=== PATIENT | female | born 1985 | race Caucasian/White ===

== ENCOUNTER 2018-05-13 01:02 | Emergency (ER) | payer OTHER ==
[~2018-05-13] VITALS: Ht 162.6 cm; Wt 69.4 kg
[~2018-05-13 01:02] MED LIST: SIMV80TA2 PO
[2018-05-13 01:04] VITALS: TEMP 36.8; Ht 162.6 cm; Wt 69.4 kg
[2018-05-13] MEDS ORDERED: ALUMINUM/MAGNESIUM SUSP 30 ML UDC PO STA (01:26)
[2018-05-13] MEDS ORDERED: LIDOCAINE HCL 2% VISC SOLN 20 ML UDC PO STA (01:26)
[2018-05-13 01:51] LABS: BASO % 0.3 %; BASO ABS # 0.04 K/uL (0-0.2); EOS % 4.8 %; EOS ABS # 0.56 K/uL (0-0.5); HEMATOCRIT 42.7 % (37-47); HEMOGLOBIN 14.2 g/dL (12.0-16.0); IG# 0.03 K/uL (0.00-0.02); MEAN CELL VOLUME 90.9 fL (80-100); MEAN CORPUSCULAR HEMOGLOBIN 30.2 pg (25-34); MEAN CORPUSCULAR HGB CONC 33.3 g/dl (32-36); MEAN PLATELET VOLUME 9.9 fL (7.4-10.4); MONO % 5.4 %; MONO ABS # 0.63 K/uL (0.11-0.59); NEUT % 53.2 %; NEUT ABS # 6.22 K/uL (1.4-6.5); PLATELET COUNT 264 K/uL (130-400); RED CELL DISTRIBUTION WIDTH CV 13.4 % (11.5-14.5); RED CELL DISTRIBUTION WIDTH SD 44.6 fL (36.4-46.3); WHITE BLOOD COUNT 11.68 K/uL (4.8-10.8)
[2018-05-13 02:15] LABS: ALBUMIN 3.6 gm/dl (3.4-5.0); ALKALINE PHOSPHATASE 69 U/L (45-117); ALT/SGPT 20 U/L (12-78); AST/SGOT 13 U/L (15-37); BLOOD UREA NITROGEN 14 mg/dl (7-18); CALCIUM 9.1 mg/dl (8.5-10.1); CARBON DIOXIDE 24 mmol/L (21-32); GLUCOSE 94 mg/dl (70-99); LIPASE 124 U/L (73-393); POTASSIUM 3.9 mmol/L (3.5-5.1); SODIUM 139 mmol/L (136-145); TOTAL PROTEIN 7.2 gm/dl (6.4-8.2)
[2018-05-13] MEDS ORDERED: ATOR-22 PO (02:55)
[2018-05-13] MEDS ORDERED: CETI10TA84 PO (02:55)
[2018-05-13] MEDS ORDERED: MONT1TAB3 PO (02:55)
[2018-05-13] MEDS ORDERED: AZEL30SP NAE (02:56)
[2018-05-13] MEDS ORDERED: FLUT0.15 NAE (02:56)
[2018-05-13] MEDS ORDERED: APRI28 PO (02:56)
[2018-05-13] MEDS ORDERED: VNTHFA/IN INH (02:57)
[2018-05-13] MEDS ORDERED: KETOROLAC TROMETHAMINE 30 MG/ML VIAL IV STA (03:11)
[2018-05-13] MEDS ORDERED: OPTIRAY 320 IV PRN (03:15)
[2018-05-13 04:23] VITALS: BP 111/65; PULSE 55; O2SAT 97
--- NOTE | 2018-05-13 04:34 | EMERGENCY ROOM VISIT NOTE ---
History First contact with patient: 01:12 Chief Complaint: ABDOMINAL PAIN Stated Complaint: SEVERE ABD PAIN,BACK PAIN,NAUSEA Nursing Triage Summary: Pt reports epigastric pain that started around 8pm tonight. Pt reports that she has had this pain before but not as severe. Pt with nausea, denies vomiting. History of Present Illness The patient is a 32 year old female who presents to the Emergency Room with complaints of epigastric pain with nausea for the past few hours. Pain 7 out of 10. Nothing makes it better or worse. Symptoms started after eating hamburger and hot dog tonight. She still has her gallbladder. Patient denies chest pain, dyspnea, vomiting, diarrhea, fever, chills, cough, congestion. Patient has had pains in her epigastric region before But nothing this severe. Review of Systems An 10 system review of systems was completed with positives and pertinent negatives listed in the HPI. Past Medical/Surgical History Medical Problems: (1) Back problem (2) No chronic diseases present Family History Patient reports no known family medical history. Social History Smoking Status: Former Smoker Alcohol Use: none Drug Use: none Marital Status: single Occupation Status: employed Current/Historical Medications Scheduled Atorvastatin (Lipitor), 20 MG PO DAILY Azelastine Hcl-Fluticasone Pro (Dymista), 2 SPRY MILY BID Cetirizine (Zyrtec), 10 MG PO HS Ethinyl Estrad/Desogestrel (Apri), 1 TAB PO DAILY Fluticasone Propionate (Nasal) (Flonase Allergy Relief), 2 SPRAYS MILY DAILY Montelukast Sodium (Singulair), 10 MG PO DAILYBB Scheduled PRN Albuterol Hfa (Ventolin Hfa), 2 PUFFS INH Q6H PRN for SORE THROAT Physical Exam Vital Signs Date Time Temp Pulse Resp B/P (MAP) Pulse Ox O2 Delivery O2 Flow Rate FiO2 05/13/18 04:23 55 16 111/65 97 Room Air 05/13/18 02:36 61 18 115/68 96 Room Air 05/13/18 01:43 Room Air 05/13/18 01:04 36.8 74 18 172/83 96 Room Air Physical Exam VITALS: Vitals are noted on the nurse's note and reviewed by myself. Vital signs stable. GENERAL: Pleasant female who appears in pain, in no acute distress, nondiaphoretic, well-developed well-nourished. SKIN: The skin was without rashes, erythema, edema, or bruising. There is no tenting of the skin. Capillary reflex less than 2 seconds. HEAD: Normocephalic atraumatic. EARS: External auditory canals clear EYES: Pupils equal round and reactive to light and accommodation. Conjunctivae without injection, sclerae without icterus. Extraocular movements intact. NOSE: Patent, turbinates without inflammation or discharge. MOUTH: Mucous membranes moist. Pharynx without erythema or exudate. Uvula midline. Airway patent. Tongue does not deviate. NECK: Supple without nuchal rigidity. No lymphadenopathy. No thyromegaly. Cervical spine is nontender. No JVD. HEART: Regular rate and rhythm without murmurs gallops or rubs. LUNGS: Clear to auscultation bilaterally without wheezes, rales or rhonchi. No retractions or accessory muscle use. ABDOMEN: Positive bowel sounds x 4. Normal tympanic percussion. Soft, tender to palpation epigastric region, without masses or organomegaly. Candelario sign negative. No guarding or rebound tenderness. No CVA tenderness MUSCULOSKELETAL: No muscle atrophy, erythema, or edema noted. NEURO: Patient was alert and oriented to person place and time. Normal sensation to light and sharp touch. No focal neurological deficits. Medical Decision & Procedures Laboratory Results 05/13/18 01:40 Red Blood Count 4.70, Mean Corpuscular Volume 90.9, Mean Corpuscular Hemoglobin 30.2, Mean Corpuscular Hemoglobin Concent 33.3, Mean Platelet Volume 9.9, Neutrophils (%) (Auto) 53.2, Lymphocytes (%) (Auto) 36.0, Monocytes (%) (Auto) 5.4, Eosinophils (%) (Auto) 4.8, Basophils (%) (Auto) 0.3, Neutrophils # (Auto) 6.22, Lymphocytes # (Auto) 4.20, Monocytes # (Auto) 0.63, Eosinophils # (Auto) 0.56, Basophils # (Auto) 0.04 05/13/18 01:40 Test 05/13/18 01:40 05/13/18 02:30 White Blood Count 11.68 K/uL (4.8-10.8) Red Blood Count 4.70 M/uL (4.2-5.4) Hemoglobin 14.2 g/dL (12.0-16.0) Hematocrit 42.7 % (37-47) Mean Corpuscular Volume 90.9 fL (80-100) Mean Corpuscular Hemoglobin 30.2 pg (25-34) Mean Corpuscular Hemoglobin Concent 33.3 g/dl (32-36) Platelet Count 264 K/uL (130-400) Mean Platelet Volume 9.9 fL (7.4-10.4) Neutrophils (%) (Auto) 53.2 % Lymphocytes (%) (Auto) 36.0 % Monocytes (%) (Auto) 5.4 % Eosinophils (%) (Auto) 4.8 % Basophils (%) (Auto) 0.3 % Neutrophils # (Auto) 6.22 K/uL (1.4-6.5) Lymphocytes # (Auto) 4.20 K/uL (1.2-3.4) Monocytes # (Auto) 0.63 K/uL (0.11-0.59) Eosinophils # (Auto) 0.56 K/uL (0-0.5) Basophils # (Auto) 0.04 K/uL (0-0.2) RDW Standard Deviation 44.6 fL (36.4-46.3) RDW Coefficient of Variation 13.4 % (11.5-14.5) Immature Granulocyte % (Auto) 0.3 % Immature Granulocyte # (Auto) 0.03 K/uL (0.00-0.02) Anion Gap 7.0 mmol/L (3-11) Est Creatinine Clear Calc Drug Dose 94.8 ml/min Estimated GFR () 111.5 Estimated GFR (Non- 96.2 BUN/Creatinine Ratio 17.1 (10-20) Calcium Level 9.1 mg/dl (8.5-10.1) Total Bilirubin 0.2 mg/dl (0.2-1) Direct Bilirubin < 0.1 mg/dl (0-0.2) Aspartate Amino Transf (AST/SGOT) 13 U/L (15-37) Alanine Aminotransferase (ALT/SGPT) 20 U/L (12-78) Alkaline Phosphatase 69 U/L (45-117) Troponin I < 0.015 ng/ml (0-0.045) Total Protein 7.2 gm/dl (6.4-8.2) Albumin 3.6 gm/dl (3.4-5.0) Lipase 124 U/L (73-393) Human Chorionic Gonadotropin, Qual NEG (NEG) Urine Color YELLOW Urine Appearance CLEAR (CLEAR) Urine pH 5.0 (4.5-7.5) Urine Specific [place] 1.020 (1.000-1.030) Urine Protein NEG (NEG) Urine Glucose (UA) NEG (NEG) Urine Ketones NEG (NEG) Urine Occult Blood NEG (NEG) Urine Nitrite NEG (NEG) Urine Bilirubin NEG (NEG) Urine Urobilinogen NEG (NEG) Urine Leukocyte Esterase NEG (NEG) Urine WBC (Auto) 1-5 /hpf (0-5) Urine RBC (Auto) 0-4 /hpf (0-4) Urine Hyaline Casts (Auto) 1-5 /lpf (0-5) Urine Epithelial Cells (Auto) 0-5 /lpf (0-5) Urine Bacteria (Auto) NEG (NEG) Medications Administered Medications (Trade) Dose Ordered Sig/Ele Route Start Time Stop Time Status Last Admin Dose Admin Lidocaine HCl (Viscous Lidocaine 2% Soln) 10 ml NOW STAT PO 05/13/18 01:26 05/13/18 01:27 DC 05/13/18 01:45 10 ML Al Hydroxide/Mg Hydroxide (Maalox Susp) 30 ml NOW STAT PO 05/13/18 01:26 05/13/18 01:27 DC 05/13/18 01:45 30 ML Ketorolac Tromethamine (Toradol Inj) 10 mg NOW STAT IV 05/13/18 03:11 05/13/18 03:12 DC 05/13/18 03:29 10 MG ED Course Prior records/ancillary studies reviewed. Triage Nursing notes reviewed. The patient's history was concerning for abdominal pain. Differential diagnosis: Etiologies such as appendicitis, diverticulitis, PUD, biliary pathology, UTI, pancreatitis, obstruction, mesenteric ischemia, aortic pathology, infections, inflammatory bowel disease, renal colic, as well as others were entertained. Physical examination findings: As above. ER treatment provided: GI cocktail, Toradol, IV fluids On reassessment the patient felt better. Diagnostics interpreted by me: ECG: Normal sinus, normal intervals, no acute ST-T wave changes. Impression normal sinus rhythm interpreted by myself I think arrhythmia is unlikely. EKG shows normal sinus rhythm with no interval abnormalities such as QT prolongation or WPW. There are no findings to suggest Brugada syndrome. Cardiac monitoring in the emergency department reveals no tachycardic or bradycardic dysrhythmia. Hypertrophic cardiomyopathy was considered but there are no clear historical elements pointing toward this. EKG is not suggestive. The QRS voltage is not extremely large and there are no suggestive Q waves. The labs revealed mild leukocytosis. Stable H&H. Negative hCG. Normal lipase Imaging studies: CT ABDOMEN & PELVIS With Contrast: Fluid in small bowel loops, nonspecific, can be seen with enteritis in the appropriate clinical setting. No evidence of bowel obstruction. A 4 cm ovoid low density structure in the right adnexa, possible ovarian cyst or fluid in small bowel. Normal caliber appendix (image [id number]). Small nonspecific mesenteric and retroperitoneal lymph nodes. Small fat-containing umbilical hernia. Mild basilar atelectatic changes. Radiologist: Narcisa Tompkins M.D. US GALLBLADDER: Unremarkable study. No gallstones or sonographic evidence of cholecystitis. Radiologist: Narcisa Tompkins M.D. Exam and history seem consistent with epigastric pain most likely gastritis in etiology. Repeat abdominal exam was benign. Patient had no lower abdominal pain. Her symptoms have improved. Normal gallbladder ultrasound. Patient was advised to rest, stay well-hydrated and take medications as directed. Patient was advised to follow-up family care in a few days for possible outpatient HIDA scan or endoscopy or to return to the ER immediately for abdominal pain, fevers , vomiting, worsening signs or symptoms or as needed. Patient did not have acute abdomen on exam. She was well-appearing. By the evaluation outlined above emergent etiologies such as appendicitis, diverticulitis, PUD, biliary pathology, UTI, pancreatitis, obstruction, mesenteric ischemia, aortic pathology, infections, inflammatory bowel disease, renal colic, as well as others were deemed relatively unlikely. The pt informed about the findings as listed above. All questions were answered and pleased with the treatment. Return instructions were outlined and the patient was discharged in stable condition. Outpatient prescription management: Protonix Referral: The patient was referred back to their primary care physician for follow-up in 2 to 3 days for a recheck of the current condition. Case reviewed with my attending The chart was completed utilizing [employer] voice recognition software. Grammatical errors, random word insertions, pronoun errors, and incomplete sentences are an occassional consequence of this system due to software limitations, ambient noise, and hardware issues. Any formal questions or concerns about the content, text, or information contained within the body of this dictation should be directly addressed to the physician residential living assistant for clarification. Medical Decision As above Medication Reconcilliation Current Medication List: was personally reviewed by me Blood Pressure Screening Patient's blood pressure: Normal blood pressure Impression Primary Impression: Epigastric abdominal pain Departure Information Dispostion Home / Self-Care Condition GOOD Referrals No Doctor, Assigned (PCP) Patient Instructions My [facility] Additional Instructions Protonix 40 m tablet daily for next 2 weeks. Take this on an empty stomach. Try Maalox or Zantac for breakthrough symptoms for reflux. Avoid large meals. Avoid acidic foods. Rest and drink plenty of fluids as tolerated. Continue current medications. CT shows possible ovarian cyst. Follow-up with family care for this. Recommend repeat pelvic ultrasound in 6 weeks for resolution. Recommend if symptoms persist to have an outpatient HIDA scan or endoscopy for further evaluation and workup. Avoid strenuous activities and anything that worsens your pain. Resume normal activities once your symptoms resolve. Return to the ER immediately for worsening or persistent chest pain, abdominal pain, black or blood in your stools, vomiting, fevers, chest pains, difficulty breathing, worsening of your condition, or as needed. Follow up with your primary physician in 2-3 days for a recheck of your current condition.
[2018-05-13] MEDS ORDERED: PANT40TA PO (04:35)
[2018-05-13] MEDS ORDERED: PANTOprazole SOD 40 MG TAB PO STA (04:35)
--- NOTE | 2018-05-13 06:32 | DIAGNOSTIC IMAGING REPORT ---
Biliary ultrasound CLINICAL HISTORY: ] Quadrant abdominal pain COMPARISON STUDY: No previous studies for comparison. FINDINGS: The pancreas appears sonographically normal. The liver appears sonographically normal. The gallbladder appears sonographically normal. There is no ductal dilatation. The common bile duct measures 3 mm. There is no right-sided hydronephrosis. IMPRESSION: Normal biliary ultrasound. Electronically signed by: Raul Vidales M.D. 05/13/2018 6:30 AM Dictated Date/Time: 05/13/2018 6:29 AM
--- NOTE | 2018-05-13 07:52 | DIAGNOSTIC IMAGING REPORT ---
CT SCAN OF THE ABDOMEN AND PELVIS WITH IV CONTRAST CLINICAL HISTORY: Upper abdominal pain. COMPARISON STUDY: Abdominal ultrasound dated 05/13/2018. TECHNIQUE: Following the IV administration of 93 cc of Optiray 320, CT scan of the abdomen and pelvis is performed from the lung bases to the proximal femora. Images are reviewed in the axial, sagittal, and coronal planes. IV contrast was administered without complication. A dose lowering technique was utilized adhering to the principles of ALARA. CT DOSE: 314.82 mGy.cm FINDINGS: Lung bases: The heart is normal in size and without pericardial effusion. The lung bases are clear noting dependant atelectasis. Liver: The contrast-enhanced liver is enlarged, measuring 20.3 cm in length. The liver is otherwise normal in contour and attenuation. Mild periportal edema is noted. There is no intrahepatic biliary ductal dilatation. The portal veins are patent. Gallbladder: Unremarkable. Spleen: Normal in size and attenuation. Pancreas: Unremarkable. Adrenal glands: Unremarkable. Kidneys: The contrast enhanced kidneys are normal in size and without hydronephrosis. The kidneys enhance symmetrically. Abdominal vasculature: The abdominal aorta is normal in course and caliber. Bowel: There is moderate colonic fecal retention. No bowel obstruction is seen. The appendix is well-visualized and normal. Peritoneum: There is no intraperitoneal free air or abdominal ascites. There is a fat-containing umbilical hernia. Lymphadenopathy: None. Pelvic viscera: The bladder and uterus are normal as imaged. A 3.7 cm minimally complex cystic structure in the right adnexa is likely related to right ovary. Skeletal structures: No lytic or blastic lesions are seen. IMPRESSION: 1. The liver is enlarged and there is nonspecific periportal edema which may be related to hydration status. Correlation with clinical findings and liver function studies will be required. 2. Moderate colonic fecal retention. No bowel obstruction is seen. 3. A 3.7 cm minimally complex cystic structure seen in the right adnexa and likely related to the right ovary. If further assessment is desired a pelvic ultrasound could be considered. Electronically signed by: Eddie Garcia M.D. 05/13/2018 7:50 AM Dictated Date/Time: 05/13/2018 7:07 AM
== END 2018-05-13 04:45 | disposition home or self-care (01) ==
LOC: C.EDB 01:03
DX: R10.13 Epigastric pain (principal); R11.0 Nausea; Z87.891 Personal history of nicotine dependence; Z79.899 Other long term (current) drug therapy